=== PATIENT | female | born 1960 | race Caucasian/White ===

== ENCOUNTER 2020-02-16 | Emergency (ER) | payer BC ==
[2020-02-16 00:13] VITALS: BP 149/100; PULSE 91
[2020-02-16] MEDS ORDERED: Ondansetron 4 MG/2 ML SDV IVPUSH ONE (00:19)
[2020-02-16] MEDS ORDERED: Sodium Chloride 0.9% 1,000 ML IV STA (00:19)
[2020-02-16] MEDS ORDERED: Sodium Chloride 0.9% 10 ML Syringe FLUSH PRN (00:19)
[2020-02-16] MEDS ORDERED: HYDROmorphone 1 MG/ML Syringe IVPUSH ONE (00:20)
--- NOTE | 2020-02-16 00:26 | EDM.PDOC ---
ED HPI GENERAL MEDICAL PROBLEM - General Chief Complaint: Lower Extremity Injury/Pain Stated Complaint: LEG PAIN Time Seen by Provider: 02/16/20 00:11 Source of Information: Reports: Patient History Limitations: Reports: No Limitations - History of Present Illness INITIAL COMMENTS - FREE TEXT/NARRATIVE: The patient presents with right leg pain. 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 She has no numbness or weakness. She has no injury that she knows of. She has no back pain. She also has some abdominal pain and blood stools. She recently had surgery for abdominal wall hernia. She had mesh put in. She has bloating and blood stools now. She did see Dr Espinosa and she is getting referred for colonoscopy. The patient also has been fatigued lately. She has no fever, chills, cough, chest pain, or shortness of breath. Onset: Gradual Duration: Day(s): Location: Reports: Lower Extremity, Right Quality: Reports: Sharp Severity: Severe Improves with: Reports: Immobilization Worsens with: Denies: Movement Context: Denies: Trauma Associated Symptoms: Denies: Chest Pain, Cough, Fever/Chills, Headaches, Nausea/Vomiting, Shortness of Breath Right Lower Abdomen Pain Score (Numeric/FACES): 7 - Related Data Allergies Allergy/AdvReac Type Severity Reaction Status Date / Time No Known Allergies Allergy Verified 02/16/20 00:10 Home Meds: Home Meds Cholecalciferol (Vitamin D3) [Vitamin D] 0 units PO WEEKLY 01/07/15 [History] Fish Oil/[place]-3 Fatty Acids [Fish Oil] 0 mg PO DAILY 01/07/15 [History] Multivit,Calc,Mins/Iron/Folic [One-A-Day Women's] 1 tab PO DAILY 01/07/15 [H istory] Cyclobenzaprine [Flexeril] 10 mg PO TID PRN #20 tab 02/16/20 [Rx] Ezetimibe [Zetia] 10 mg PO DAILY 02/16/20 [History] FLUoxetine [PROzac] 40 mg PO DAILY 02/16/20 [History] Hydrocodone/Acetaminophen [Hydrocodone-Acetamin 5-325 mg] 1 - 2 each PO Q6HR PRN #20 tablet 02/16/20 [Rx] Past Medical History HEENT History: Reports: Impaired Vision Other HEENT History: Wears glasses Cardiovascular History: Reports: High Cholesterol Gastrointestinal History: Reports: GERD Genitourinary History: Reports: Renal Calculus 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: - Past Surgical History GI Surgical History: Reports: Cholecystectomy, Hernia, Abdominal Social & Family History - Tobacco Use Smoking Status *Q: Current Every Day Smoker Years of Tobacco use: 20 Packs/Tins Daily: 0.5 - Recreational Drug Use Recreational Drug Use: No Review of Systems - Review of Systems Review Of Systems: See Below Constitutional: Reports: No Symptoms Eyes: Reports: No Symptoms Ears: Reports: No Symptoms Nose: Reports: No Symptoms Mouth/Throat: Reports: No Symptoms Respiratory: Reports: No Symptoms Cardiovascular: Reports: No Symptoms GI/Abdominal: Reports: Abdominal Pain, Bloody Stool. Denies: Nausea, Vomiting Genitourinary: Reports: No Symptoms Musculoskeletal: Reports: Other (Right leg pain) ED EXAM, GENERAL - Physical Exam Exam: See Below Exam Limited By: No Limitations General Appearance: Alert, No Apparent Distress Ears: Normal External Exam Nose: Normal Inspection Head: Atraumatic, Normocephalic Neck: Normal Inspection Respiratory/Chest: No Respiratory Distress, Lungs Clear, Normal Breath Sounds Cardiovascular: Regular Rate, Rhythm, No Edema, No Murmur GI/Abdominal: No Organomegaly, No Mass, Other (Mild generalized tenderness) Back Exam: Normal Inspection Extremities: Other (No pain upon palpation. Good sensation and pulses distally) Neurological: Alert, Oriented, No Motor/Sensory Deficits Course - Vital Signs Last Recorded V/S: Last Vital Signs Temp 96.5 F L 02/16/20 00:10 Pulse 91 02/16/20 00:10 Resp 17 02/16/20 00:10 BP 149/100 H 02/16/20 00:10 Pulse Ox 97 02/16/20 00:10 - Orders/Labs/Meds Orders: Active Orders 24 hr Category Date Time Status Peripheral IV Care [RC] . DIRECTED Care 02/16/20 00:19 Active Abdomen Pelvis w Cont [CT] Stat Exams 02/16/20 00:19 Taken Sodium Chloride 0.9% [Saline Flush] Med 02/16/20 00:19 Active 10 ml FLUSH ASDIRECTED PRN ED Antiemetic Medication Reflex [OM.PC] Stat Oth 02/16/20 00:19 Ordered Peripheral IV Insertion Adult [OM.PC] Stat Oth 02/16/20 00:19 Ordered Medication Orders Sodium Chloride (Saline Flush) 10 ml FLUSH ASDIRECTED PRN PRN Reason: Keep Vein Open Last Admin: 02/16/20 00:45 Dose: 10 ml Documented by: MEKA Labs: Laboratory Tests 02/16/20 02/16/20 Range/Units 00:38 00:38 WBC 5.71 (3.98-10.04) K/mm3 RBC 4.67 (3.98-5.22) M/mm3 Hgb 14.1 (11.2-15.7) gm/dl Hct 42.4 (34.1-44.9) % MCV 90.8 (79.4-94.8) fl MCH 30.2 (25.6-32.2) pg MCHC 33.3 (32.2-35.5) g/dl RDW Std Deviation 42.3 (36.4-46.3) fL Plt Count 284 (182-369) K/mm3 MPV 9.6 (9.4-12.3) fl Neut % (Auto) 67.3 (34.0-71.1) % Lymph % (Auto) 21.5 (19.3-51.7) % C[place] % (Auto) 8.2 (4.7-12.5) % Eos % (Auto) 1.8 (0.7-5.8) Baso % (Auto) 0.7 (0.1-1.2) % Neut # (Auto) 3.84 (1.56-6.13) K/mm3 Lymph # (Auto) 1.23 (1.18-3.74) K/mm3 [place] # (Auto) 0.47 H (0.24-0.36) K/mm3 Eos # (Auto) 0.10 (0.04-0.36) K/mm3 Baso # (Auto) 0.04 (0.01-0.08) K/mm3 Sodium 142 (136-145) mEq/L Potassium 3.8 (3.5-5.1) mEq/L Chloride 104 (98-107) mEq/L Carbon Dioxide 23 (21-32) mEq/L Anion Gap 18.8 H (5-15) BUN 22 H (7-18) mg/dL Creatinine 1.1 H (0.55-1.02) mg/dL Est Cr Clr Drug Dosing 44.09 mL/min Estimated GFR (MDRD) 51 (>60) mL/min BUN/Creatinine Ratio 20.0 H (14-18) Glucose 105 (74-106) mg/dL Calcium 9.2 (8.5-10.1) mg/dL Total Bilirubin 0.6 (0.2-1.0) mg/dL AST 19 (15-37) U/L ALT 32 (14-59) U/L Alkaline Phosphatase 72 (46-116) U/L Total Protein 7.8 (6.4-8.2) g/dl Albumin 4.3 (3.4-5.0) g/dl Globulin 3.5 gm/dL Albumin/Globulin Ratio 1.2 (1-2) Lipase 188 (73-393) U/L Meds: Medications Generic Name Dose Route Start Last Admin Trade Name Freq PRN Reason Stop Dose Admin Sodium Chloride 10 ml 02/16/20 00:19 02/16/20 00:45 Saline Flush FLUSH 10 ml ASDIRECTED PRN Administration Keep Vein Open Discontinued Medications Generic Name Dose Route Start Last Admin Trade Name Freq PRN Reason Stop Dose Admin Hydromorphone HCl 1 mg 02/16/20 00:20 02/16/20 00:43 Dilaudid IVPUSH 02/16/20 00:21 1 mg ONETIME ONE Administration Sodium Chloride 1,000 mls @ 1,000 mls/hr 02/16/20 00:19 02/16/20 00:41 Normal Saline IV 02/16/20 01:18 1,000 mls/hr .BOLUS STA Administration Ondansetron HCl 4 mg 02/16/20 00:19 02/16/20 00:41 Zofran IVPUSH 02/16/20 00:20 4 mg ONETIME ONE Administration - Re-Assessments/Exams Free Text/Narrative Re-Assessment/Exam: 02/16/20 00:26 I ordered an IV NS 1L bolus, dilaudid 1mg IV, zofran 4mg IV, labs, and a CT of her abdomen and pelvis. 02/16/20 02:50 Her CBC looks good. Her creatinine was 1.1. Her lipase was normal. Her CT s hows nothing acute and nothing to explain her symptoms. She is seeing Dr Biggs for a colonoscopy soon. Departure - Departure Time of Disposition: 03:00 Disposition: Home, Self-Care 01 Condition: Good Clinical Impression: Abdominal bloating, Rectal bleeding Sciatica Qualifiers: Laterality: right Qualified Code(s): M54.31 - Sciatica, right side - Discharge Information *PRESCRIPTION DRUG MONITORING PROGRAM REVIEWED*: No *COPY OF PRESCRIPTION DRUG MONITORING REPORT IN PATIENT MONICA: No Prescriptions: Cyclobenzaprine [Flexeril] 10 mg PO TID PRN #20 tab PRN Reason: Pain Hydrocodone/Acetaminophen [Hydrocodone-Acetamin 5-325 mg] 1 - 2 each PO Q6HR PRN #20 tablet PRN Reason: Pain Referrals: Rachel Daily MD [Primary Care Provider] - Forms: ED Department Discharge Additional Instructions: Take pepcid daily for 2 weeks. Take the flexeril and hydrocodone as needed for the sciatic pain. Follow up with Dr Biggs. Please return if you are worse. Sepsis Event Note (ED) - Evaluation Sepsis Screening Result: No Definite Risk - Focused Exam Vital Signs: Vital Signs Temp Pulse Resp BP Pulse Ox 02/16/20 00:10 96.5 F L 91 17 149/100 H 97 - My Orders Last 24 Hours: My Active Orders 02/16/20 00:19 Peripheral IV Care [RC] . DIRECTED Abdomen Pelvis w Cont [CT] Stat Sodium Chloride 0.9% [Saline Flush] 10 ml FLUSH ASDIRECTED PRN ED Antiemetic Medication Reflex [OM.PC] Stat Peripheral IV Insertion Adult [OM.PC] Stat - Assessment/Plan Last 24 Hours: My Active Orders 02/16/20 00:19 Peripheral IV Care [RC] . DIRECTED Abdomen Pelvis w Cont [CT] Stat Sodium Chloride 0.9% [Saline Flush] 10 ml FLUSH ASDIRECTED PRN ED Antiemetic Medication Reflex [OM.PC] Stat Peripheral IV Insertion Adult [OM.PC] Stat
--- NOTE | 2020-02-16 06:38 | CT ---
CT abdomen and pelvis Technique: Multiple axial sections were obtained from above the dome of the diaphragm inferiorly through the pubic symphysis. Intravenous and oral contrast was utilized. Delayed images were also obtained through the bladder. Comparison: Prior CT abdomen and pelvis study of 06/24/12. Findings: Visualized lung bases show nothing acute. Liver shows diminished density next to the ligamentum teres fissure which is compatible with fat. Spleen appears normal. Surgical clips are seen from prior cholecystectomy. Adrenal glands show no nodule. Kidneys show symmetric contrast enhancement. Small nonobstructing calculus noted within the mid right kidney. Pancreas appears normal. Aorta shows no aneurysm. No retroperitoneal adenopathy or mesenteric abnormalities are seen. Appendix is seen which is normal. No pelvic mass or adenopathy is seen. No free fluid or inflammatory change is appreciated. Minimal fat-containing umbilical hernia is noted.4 Delayed images shows contrast within the left ureter. Minimal contrast seen within the left ureter. No ureteral dilatation is seen. Bone window settings were reviewed. Mild scattered degenerative change throughout the spine is seen. No acute osseous finding is appreciated. Impression: 1. Findings as noted above which are felt to be stable. 2. Nothing acute is appreciated on CT study of the abdomen and pelvis. Diagnostic code #2 This report was dictated in MDT I agree with preliminary report from [facility], finalized on , 3:36 AM Central Daylight Time
== END 2020-02-16 03:05 | disposition home or self-care (01) ==
LOC: JD.ED
DX: M54.31 Sciatica, right side (principal); K62.5 Hemorrhage of anus and rectum; R14.0 Abdominal distension (gaseous); F17.210 Nicotine dependence, cigarettes, uncomplicated; Z79.899 Other long term (current) drug therapy
CPT/HCPCS: 36415; 74177; 80053; 83690; 85025; 96374; 96375; 99284; J1170; J2405; J7030

== ENCOUNTER 2021-03-30 15:38 | Emergency (ER) | payer BC ==
[2021-03-30 16:00] VITALS: BP 136/71; PULSE 85
[2021-03-30] MEDS ORDERED: Fluorescein 1 MG Ophth Strip EYERT ONE (16:07)
--- NOTE | 2021-03-30 16:12 | EDM.PDOC ---
ED HPI GENERAL MEDICAL PROBLEM - General Chief Complaint: Skin Complaint Stated Complaint: RASH ON HEAD EAR PAIN Time Seen by Provider: 03/30/21 16:00 Source of Information: Reports: Patient, RN Notes Reviewed History Limitations: Reports: No Limitations - History of Present Illness INITIAL COMMENTS - FREE TEXT/NARRATIVE: Patient is a 60 year old female who presents to the ED for a rash on her face. She states that this rash started maybe Wednesday night. She states that this is very painful, it started with some bubbles on her skin. This is located on the right forehead, and into her scalp. She states her eyes seems irritated, and her ear hurts, there is an area behind her ear, that feels like it has a lump as well. She states that she did have chickenpox when she was a younger child. No other sick symptoms like fevers or chills, cough or shortness of breath, etc. nausea/vomiting/diarrhea. - Related Data Allergies Allergy/AdvReac Type Severity Reaction Status Date / Time No Known Allergies Allergy Verified 02/16/20 00:10 Home Meds: Home Meds Cholecalciferol (Vitamin D3) [Vitamin D] 0 units PO WEEKLY 01/07/15 [History] Fish Oil/[place]-3 Fatty Acids [Fish Oil] 0 mg PO DAILY 01/07/15 [History] Multivit,Calc,Mins/Iron/Folic [One-A-Day Women's] 1 tab PO DAILY 01/07/15 [History] Cyclobenzaprine [Flexeril] 10 mg PO TID PRN #20 tab 02/16/20 [Rx] Ezetimibe [Zetia] 10 mg PO DAILY 02/16/20 [History] FLUoxetine [PROzac] 40 mg PO DAILY 02/16/20 [History] Hydrocodone/Acetaminophen [HYDROcodone-Acetaminophen 5-325 MG] 1 - 2 each PO Q6HR PRN #20 tablet 02/16/20 [Rx] Acetaminophen/oxyCODONE [Percocet 325-5 MG] 1 each PO Q6H PRN #20 tab 03/30/21 [Rx] valACYclovir HCl [valACYclovir] 1,000 mg PO TID 14 Days #39 tablet 03/30/21 [Rx] Past Medical History HEENT History: Reports: Impaired Vision Other HEENT History: Wears glasses Cardiovascular History: Reports: High Cholesterol Gastrointestinal History: Reports: GERD Genitourinary History: Reports: Renal Calculus 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 ED EXAM, SKIN/RASH Exam: See Below Exam Limited By: No Limitations General Appearance: Alert, WD/WN, No Apparent Distress Eye Exam: Right Eye: Conjunctival Injection (the eye was examined with Fluoroscein; no dendritic lesions appreciated. The eye itself does look irritated.), Bilateral Eye: EOMI, Normal Inspection, PERRL Ears: Normal External Exam, Normal Canal, Hearing Grossly Normal, Normal TMs Throat/Mouth: Normal Inspection, Normal Lips, Normal Teeth, Normal Gums, Normal Oropharynx, Normal Voice, No Airway Compromise Head: Normocephalic Neck: Normal Inspection, Supple, Non-Tender, Full Range of Motion, Lymphadenopathy (R) (1 shoddy node appreciated right behind the patient's right ear, this tender to the touch) Respiratory/Chest: No Respiratory Distress, Lungs Clear, Normal Breath Sounds, No Accessory Muscle Use, Chest Non-Tender Cardiovascular: Normal Peripheral Pulses, Regular Rate, Rhythm, No Edema Neurological: Alert, Oriented, Normal Cognition, No Motor/Sensory Deficits Psychiatric: Normal Affect, Normal Mood Skin: Warm, Dry, Intact, Normal Color, Zoster-Like Rash (over the right half of forehead and into scalp. There is mild swelling/irritation to the upper right eye lid, there does not appear to be lesions on the nose at this time.) Associated features: Tenderness Course - Vital Signs Last Recorded V/S: Last Vital Signs Temp 98.3 F 03/30/21 15:59 Pulse 85 03/30/21 15:59 Resp 20 03/30/21 15:59 BP 136/71 03/30/21 15:59 Pulse Ox 97 03/30/21 15:59 - Orders/Labs/Meds Meds: Medications Discontinued Medications Generic Name Dose Route Start Last Admin Trade Name Freq PRN Reason Stop Dose Admin Erythromycin 1 gm 03/30/21 16:45 Erythromycin Base 0.5% Ophth Oint 1 Gm Tube EYERT 03/30/21 16:46 ONETIME ONE Fluorescein Sodium 1 mg 03/30/21 16:07 03/30/21 16:25 Fluorescein 1 Mg Ophth Strip EYERT 03/30/21 16:08 1 mg ONETIME ONE Administration Oxycodone/Acetaminophen 2 tab 03/30/21 16:27 03/30/21 16:42 Acetaminophen/Oxycodone 325-5 Mg Tab PO 03/30/21 16:28 2 tab ONETIME ONE Administration Oxycodone/Acetaminophen 2 tab 03/30/21 16:54 Acetaminophen/Oxycodone 325-5 Mg Tab PO 03/30/21 16:55 ONETIME ONE Valacyclovir HCl 2,000 mg 03/30/21 16:28 03/30/21 16:43 Valacyclovir 1,000 Mg Tab PO 03/30/21 16:29 2,000 mg ONETIME ONE Administration - Re-Assessments/Exams Free Text/Narrative Re-Assessment/Exam: 03/30/21 16:38 Patient presents to the ER for evaluation of a rash on her face, this is consistent with a shingles infection. We will go ahead and get her started on valacyclovir 1000 mg 3 times daily for the next 7 days, due to this being so close to her eye, I have been in contact with ophthalmology, and they recommend We will also give her a prescription for Percocet tablets for ongoing pain management. We will have her not to go to work for the next 5 days or so until the lesions rupture and kind of start crusting over. 03/30/21 16:46 I was able to speak with Dr. 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 She does recommend that the patient have a follow-up dilated eye exam in at least the next 2 days, and another follow-up exam in 2 weeks. She states it is okay to see a provider in [place], or if she should wish to go to [place], they would be glad to see her as well. She notes that they also do have eye doctors that travel to [place] from time to time however she was not aware of who that would be anytime soon. Departure - Departure Time of Disposition: 16:48 Disposition: Home, Self-Care 01 Condition: Good Clinical Impression: Shingles outbreak Qualifiers: Herpes zoster complications: unspecified herpes zoster complication Qualified Code(s): B02.8 - Zoster with other complications - Discharge Information *PRESCRIPTION DRUG MONITORING PROGRAM REVIEWED*: Yes *COPY OF PRESCRIPTION DRUG MONITORING REPORT IN PATIENT OMNICA: No Prescriptions: Acetaminophen/oxyCODONE [Percocet 325-5 MG] 1 each PO Q6H PRN #20 tab PRN Reason: Pain valACYclovir HCl [valACYclovir] 1,000 mg PO TID 14 Days #39 tablet Instructions: Shingles, [id number] Referrals: Rachel Daily MD [Primary Care Provider] - Forms: ED Department Discharge, ED Return to Work/School Form Additional Instructions: You have been evaluated in the ED today for a rash to your face. You were identified to be having an outbreak of herpes zoster, or the virus that causes shingles. This manifests as a very painful rash, that has blisters, that will eventually rupture and crust over. Your eye was examined, and at this time, there does not appear to be any sort of zoster lesions on the eye itself however the eye has had some irritation, and will need some ointment placed to it for the next few days. Please use the erythromycin ointment, 1 cm ribbon to the lower affected eyelid margin 4 times daily for the next 3-5 days. Treatment for the Shingles outbreak will be Valacyclovir, 1 tablet 3 times a day for the next 2 weeks your first 2 doses was given in the ER today, as no pharmacies are open tonight. You were given a prescription for a strong pain medication, oxycodone/acetaminophen 5/325 mg, please take 1 tab every 6 hours as needed for pain not relieved by Tylenol or ibuprofen alone. Please note this medication does contain Tylenol in it, so do not take more than 4000 mg in a 24-hour time span. These medications can be addictive, so please take as few as possible to achieve adequate pain control. These meds can also be quite constipating, recommend that you increase your oral fluid intake and take a stool softener like MiraLAX while taking these medications. Do not drive while taking this medication. This medication was electronically sent to the [facility] pharmacy located on [address]. Recommend that you follow up with optometry [facility] for a more thorough evaluation and to make sure that everything is healing appropriately. You will have to call around and schedule yourself an appointment with the next available provider if you do not already have a current eye doctor. Ophthalmology at [facility] in [place], does recommend that you get in within at least the next 2 days or so, and then have another follow-up appointment within 2 weeks for management If you cannot find a provider in [place], you may call [phone] to schedule an appointment with her clinic, either in [place], or with one of their providers that do come to [place]. Please return to the ED if your symptoms should change or worsen. Sepsis Event Note (ED) - Focused Exam Vital Signs: Vital Signs Temp Pulse Resp BP Pulse Ox 03/30/21 15:59 98.3 F 85 20 136/71 97
[2021-03-30] MEDS ORDERED: Acetaminophen/oxyCODONE 325-5 MG Tab PO ONE ×2 (16:27→16:54)
[2021-03-30] MEDS ORDERED: valACYclovir 1,000 MG Tab PO ONE (16:28)
[2021-03-30] MEDS ORDERED: Erythromycin Base 0.5% Ophth Oint 1 GM Tube EYERT ONE (16:45)
== END 2021-03-30 17:20 | disposition home or self-care (01) ==
LOC: JD.ED 15:38
DX: B02.8 Zoster with other complications (principal); Z72.0 Tobacco use
CPT/HCPCS: 99282; A9270; 99283

== ENCOUNTER 2021-04-02 04:49 | Emergency (ER) | payer BC ==
[2021-04-02 05:11] VITALS: BP 138/81; PULSE 83
--- NOTE | 2021-04-02 05:31 | EDM.PDOC ---
ED HPI GENERAL MEDICAL PROBLEM - General Chief Complaint: Skin Complaint Stated Complaint: SHINGLES Time Seen by Provider: 04/02/21 04:59 Source of Information: Reports: Patient, Family (Son) History Limitations: Reports: No Limitations - History of Present Illness INITIAL COMMENTS - FREE TEXT/NARRATIVE: Mrs. Temple is a very pleasant 60-year-old woman who developed pain to the upper right side of her face this past , 03/27/2021, followed by a blistering rash on 03/28/2021. She was seen in this ED on 03/30/2021, where she was diagnosed with varicella-zoster. She was started on valacyclovir, instructed to take OTC ibuprofen, prescribed Percocet, and given a tube of erythromycin ointment. She then followed up with an Utilization Review Nurse yesterday, 04/01/2021, at which time she was told that there does not appear to be involvement of her right thigh. She was advised to stop using the erythromycin ointment. The patient now returns to the ED stating that when she woke up this morning, she discovered painless swelling around her left eye. She is concerned that the infection has demanded to involve her left eye. Here in the ED, the patient is found to be hemodynamically stable, afebrile, saturating 96% on room air. She appears to be relatively comfortable, no acute distress. Prior to , the patient denies having a recent fever, chills, sore throat, ear pain, nasal or sinus congestion, cough, dyspnea, chest pain, palpitations, nausea, vomiting, constipation, diarrhea, abdominal pain, urinary symptoms, recent weight gain or weight loss, recent bloody bowel movements or black bowel movements, recent joint aches, headaches, or rashes. The patient's PCP is Dr. Rachel Kebede. Her Utilization Review Nurse is Dr. Nona Ramos. Right Face/Facial Pain Score (Numeric/FACES): 6 - Related Data Allergies Allergy/AdvReac Type Severity Reaction Status Date / Time No Known Allergies Allergy Verified 04/02/21 05:03 Home Meds: Home Meds Cholecalciferol (Vitamin D3) [Vitamin D] 0 units PO WEEKLY 01/07/15 [History] Fish Oil/[place]-3 Fatty Acids [Fish Oil] 0 mg PO DAILY 01/07/15 [History] Multivit,Calc,Mins/Iron/Folic [One-A-Day Women's] 1 tab PO DAILY 01/07/15 [History] Cyclobenzaprine [Flexeril] 10 mg PO TID PRN #20 tab 02/16/20 [Rx] Ezetimibe [Zetia] 10 mg PO DAILY 02/16/20 [History] FLUoxetine [PROzac] 40 mg PO DAILY 02/16/20 [History] Hydrocodone/Acetaminophen [HYDROcodone-Acetaminophen 5-325 MG] 1 - 2 each PO Q6HR PRN #20 tablet 02/16/20 [Rx] Acetaminophen/oxyCODONE [Percocet 325-5 MG] 1 each PO Q6H PRN #20 tab 03/30/21 [Rx] valACYclovir HCl [valACYclovir] 1,000 mg PO TID 14 Days #39 tablet 03/30/21 [Rx] Past Medical History HEENT History: Reports: Impaired Vision (wears glasses) Cardiovascular History: Reports: High Cholesterol Gastrointestinal History: Reports: GERD (untreated) Genitourinary History: Reports: Renal Calculus Psychiatric History: Reports: Anxiety - Infectious Disease History Infectious Disease History: Reports: Shingles (dx'd 03/30/2021) - Past Surgical History Cardiovascular Surgical History: Reports: Vascular Surgery (RLE vein stripping) GI Surgical History: Reports: Cholecystectomy (around 2004), Hernia, Abdominal Social & Family History - Tobacco Use Tobacco Use Status *Q: Current Every Day Tobacco User Years of Tobacco use: 40 Packs/Tins Daily: 0.7 - Caffeine Use Caffeine Use: Reports: Coffee - Alcohol Use Alcohol Use History: Yes Alcohol Use Frequency: Socially - Recreational Drug Use Recreational Drug Use: No - Living Situation & Occupation Living situation: Reports: , with Spouse, with Family (Son) Occupation: Employed ([employer]) ED ROS GENERAL - Review of Systems Review Of Systems: Comprehensive ROS is negative, except as noted in HPI. ED EXAM, SKIN/RASH Exam: See Below Exam Limited By: No Limitations General Appearance: Alert, WD/WN, No Apparent Distress Eye Exam: Bilateral Eye: EOMI, Normal Inspection, Periorbital Changes (Edema around right eye to full closure. Mild swelling around left eye, no erythema.) Ears: Normal External Exam, Normal Canal, Hearing Grossly Normal, Normal TMs Nose: Normal Inspection, Normal Mucosa, No Blood Throat/Mouth: Normal Inspection, Normal Lips, Normal Voice, No Airway Compromise Head: Atraumatic, Other (Erythematous rash with some vesicles and some crusted lesions visible to the right forehead, extending to the upper right eyebrow) Course - Vital Signs Last Recorded V/S: Last Vital Signs Temp 35.9 C L 04/02/21 05:06 Pulse 83 04/02/21 05:06 Resp 15 04/02/21 05:06 BP 138/81 04/02/21 05:06 Pulse Ox 96 04/02/21 05:06 - Re-Assessments/Exams Free Text/Narrative Re-Assessment/Exam: 04/02/21 05:27 As above, the patient was diagnosed with herpes zoster of the right side of her face this past Wednesday. The lesions extend to just above her right eye, causing swelling around her right eye, but she saw Dr. Ramos yesterday, who found that her right globe is not involved. She is concerned, because she woke this morning with swelling about her left eye. This is most certainly due to the patient lying on her left side while sleeping, allowing edematous fluid from the right side of her face to extravasate to the left side of her face. I explained that varicella-zoster does not cross the midline, and there is no chance of left eye involvement. I predicted that the edema to her left eye will dissipate over the course of the day, as she is upright, due to downward extravasation of fluid due to gravity, only to reappear the following morning. The patient will try to sleep on her right side, but I explained that, while possibly unsightly, it is not dangerous. Departure - Departure Time of Disposition: 05:29 Disposition: Home, Self-Care 01 Condition: Good Clinical Impression: Varicella zoster - Discharge Information *PRESCRIPTION DRUG MONITORING PROGRAM REVIEWED*: Not Applicable *COPY OF PRESCRIPTION DRUG MONITORING REPORT IN PATIENT MONICA: Not Applicable Referrals: Rachel Daily MD [Primary Care Provider] - Nona Ramos MD [Ordering Only Provider] - Additional Instructions: You were seen in the emergency room after your left eye became swollen/edematous, in the setting of right facial varicella-zoster. As discussed, the edema around her left eye is due to extravasation of fluid from the right side of your face when you sleep on your left side. As discussed, the edema may be unsightly, but it is not dangerous, and you do not need to worry about it. It will most likely dissipate over the course of the day while you are upright, but will likely recur again after you sleep. Continue to take the valacyclovir as previously prescribed. Follow-up with your Utilization Review Nurse, Dr. Nona Ramos, at your previously scheduled appointment in about 2 weeks. If any other problems, please do not hesitate to return to the ER. Sepsis Event Note (ED) - Evaluation Sepsis Screening Result: No Definite Risk - Focused Exam Vital Signs: Vital Signs Temp Pulse Resp BP Pulse Ox 04/02/21 05:06 35.9 C L 83 15 138/81 96
== END 2021-04-02 05:37 | disposition home or self-care (01) ==
LOC: JD.ED 04:49
DX: B02.9 Zoster without complications (principal); R60.0 Localized edema; Z72.0 Tobacco use
CPT/HCPCS: 99282; 99283